=== PATIENT | female | born 2000 | race Caucasian/White ===

== ENCOUNTER → 2020-10-12 | Outpatient (CLI) | payer OTHER ==
--- NOTE | 2020-10-12 14:25 | MR ---
EXAMINATION TYPE: MR knee LT wo con DATE OF EXAM: 10/12/2020 COMPARISON: MRI 12/07/2015 HISTORY: Pain in left knee TECHNIQUE: Multiplanar, multisequence imaging of the left knee is performed without IV contrast. FINDINGS: MEDIAL MENISCUS: There is curvilinear structure of the posterior horn and body of the medial meniscus . LATERAL MENISCUS: There is high signal within the posterior horn and body of the lateral meniscus. CRUCIATE LIGAMENTS: Patient is status post anterior cruciate ligament repair with graft intact. Poste rior cruciate ligament is intact. COLLATERAL LIGAMENTS: The medial collateral ligament and lateral collateral ligament complex are inta ct and unremarkable. EXTENSOR MECHANISM: Visualized quadriceps and patellar tendons are intact. EFFUSION: No significant suprapatellar joint effusion. POPLITEAL CYST: No popliteal/iqbal cyst. CARTILAGE: There are partial-thickness articular cartilage defects of the medial and lateral femoral condyles and tibial plateaus (grade 2). BONE MARROW SIGNAL: No focal abnormal marrow signal is appreciated. OTHER: No additional significant abnormality is appreciated. IMPRESSION: 1. High signal is noted within the posterior horn and body of the medial and lateral menisci. This ma y represent postoperative changes versus re-tear. Arthrogram may be helpful. 2. Partial-thickness articular cartilage defects of the medial and lateral compartments. 3. Status post ACL repair with graft intact.
== END | disposition home or self-care (01) ==
LOC: RADMRIMAIN 12:20
PROVIDERS: ATTEND Orthopaedic Surgery Sports Medicine
DX: M23.92 Unspecified internal derangement of left knee (principal)

== ENCOUNTER → 2020-11-22 | Outpatient (CLI) | payer OTHER ==
--- NOTE | 2020-11-22 20:31 | MR ---
EXAMINATION TYPE: MR knee RT wo con DATE OF EXAM: 11/22/2020 COMPARISON: None HISTORY: Right knee pain MR scan of the right knee without contrast. There is linear defect in the proximal tibia and distal femur related to old reconstructive surgery. The posterior cruciate ligament is intact. Anterior cruciate ligament is not well seen. Complete tear is possible. There is a small knee joint effusion. There is oblique tear posterior horn of the later al meniscus extending to the superior surface. The anterior horn lateral meniscus appears intact. The re is horizontal increased signal in the posterior horn medial meniscus without extension to the fernando cular surface. There is patchy increased signal in the lateral tibial condyle on the T2 images that measures 2.5 x 2 cm. This is seen posteriorly and consistent with a bone bruise. No fracture line seen. Distal femur is intact. The collateral ligaments appear intact. IMPRESSION: Oblique tear posterior horn lateral meniscus. Intrasubstance tear posterior horn medial meniscus. Pos sible complete tear of the anterior cruciate ligament. Previous anterior cruciate ligament reconstruc tive surgery. No fracture seen. Mild bone bruise of the lateral tibial condyle. Small joint effusion.
== END | disposition home or self-care (01) ==
LOC: RADMRIMAIN 15:13
PROVIDERS: ATTEND Physician Assistant
DX: M23.351 Other meniscus derangements, posterior horn of lateral meniscus, right knee (principal); M23.321 Other meniscus derangements, posterior horn of medial meniscus, right knee